=== PATIENT | male | born 1960 | race Caucasian/White ===

== ENCOUNTER → 2024-03-10 | Outpatient (CLI) | payer MEDICARE ==
--- NOTE | 2024-03-10 14:23 | XR ---
EXAMINATION TYPE: XR shoulder complete LT DATE OF EXAM: 03/10/2024 CLINICAL HISTORY: pain COMPARISON: NONE TECHNIQUE: Three views of the left shoulder are obtained. FINDINGS: There is no acute fracture/dislocation evident. The acromioclavicular and glenohumeral dharmesh int spaces appear within normal limits. The visualized ribs are intact and unremarkable. IMPRESSION: 1. There is no acute fracture or dislocation. ICD 10 NO FRACTURE, INITIAL EVALUATION
== END | disposition home or self-care (01) ==
LOC: RADXRYALE 14:06
PROVIDERS: ATTEND Physician Assistant
DX: M25.512 Pain in left shoulder (principal)